=== PATIENT | male | born 1985 | race Caucasian/White ===

== ENCOUNTER 2019-08-05 20:33 | Emergency (ER) | payer SELFPAY ==
[~2019-08-05] VITALS: Ht 182.9 cm; Wt 74.8 kg
[2019-08-05 20:38] VITALS: Ht 182.9 cm; Wt 74.8 kg
[2019-08-05] MEDS ORDERED: HYDROCODON-ACE1 EAC2 PO (22:14)
[2019-08-05 22:41] VITALS: BP 123/78
== END 2019-08-05 22:41 | disposition home or self-care (01) ==
LOC: D.ER 20:33
DX: S16.1XXA Strain of muscle, fascia and tendon at neck level, initial encounter (principal); S82.491A Other fracture of shaft of right fibula, initial encounter for closed fracture; V89.2XXA Person injured in unspecified motor-vehicle accident, traffic, initial encounter; Y93.9 Activity, unspecified; Y92.9 Unspecified place or not applicable; S39.012A Strain of muscle, fascia and tendon of lower back, initial encounter